=== PATIENT | female | born 1945 | race Caucasian/White ===

== ENCOUNTER 2020-01-19 06:48 | Day surgery (SDC) | payer MEDICARE ==
[2020-01-19] MEDS ORDERED: fentaNYL 100 MCG/2 ML SDV ONE (07:14)
[2020-01-19] MEDS ORDERED: Propofol 200 MG/20 ML SDV ONE (07:14)
[2020-01-19] MEDS ORDERED: Cyanocobalamin (Vitamin B12) 1,000 MCG/ML SDV IM ONE (07:45)
[2020-01-19] MEDS ORDERED: Glycopyrrolate 0.2 MG/ML 2 ML SDV IVPUSH ONE (07:45)
[2020-01-19] MEDS ORDERED: Lactated Ringers 1,000 ML IV ONE (07:45)
[2020-01-19] MEDS ORDERED: MVI, Adult with Vitamin K 10 ML, Thiamine 200 MG, Chromium/Copper/Mang/Selen/Zn 1 ML in... IV ONE ×4 (08:45)
--- NOTE | 2020-01-30 14:51 | OR ---
DATE OF PROCEDURE: 01/19/2020 SURGEON: Terrance Ng MD PREOPERATIVE DIAGNOSIS: Non dilatable strictured gastrojejunostomy, status post silastic band into gastric bypass. POSTOPERATIVE DIAGNOSES: 1. Non dilatable strictured gastrojejunostomy, status post silastic band into gastric bypass. 2. Distal esophageal ulcer. OPERATIVE PROCEDURE: Upper GI endoscopy with biopsies of distal esophageal ulcer. ANESTHESIA: IV sedation. INDICATIONS FOR PROCEDURE: A 74-year-old, status post a Rich-en-Y gastric bypass done in [place] in the . This was done with a silastic band across the gastrojejunostomy. She has had persistent problems with abdominal pain and heartburn and has undergone multiple upper endoscopies and attempted dilations of the stricture of the gastrojejunostomy. To confirm the diagnosis, the patient to undergo an upper GI endoscopy with biopsies as indicated. Potential risks including bleeding and perforation were discussed, and the patient wishes to proceed. DETAILS OF PROCEDURE: The patient was taken to the operating room and placed in a left lateral decubitus position. IV sedation was administered, after which the upper GI endoscope was passed orally through the length of the esophagus and into the gastric pouch. The scope could be passed through the gastrojejunostomy but this was fairly narrowed, and given the presence of the silastic band, this appeared to be probably not in a situation that it could be dilated as the silastic band would recoil to its same diameter after the dilation process, which is obviously what had been happening with the prior upper endoscopies done in [place]. The visualized portion of the Rich limb was otherwise unremarkable. Pouch itself was quite large and would require significant reduction in size at the time of re-operation. Biopsies were obtained from the distal esophageal ulcer which was likely related to reflux of acid and retained contents within the gastric pouch. Minimal bleeding from the biopsy sites was seen and the procedure was then concluded. The patient was taken to the recovery room in satisfactory condition. Situation was discussed with the patient and her daughter and plan will be to proceed with revision of the gastric bypass late next week. We will want to wait enough time to get the biopsy report from the esophageal ulcer to be sure that there are not any malignant changes in that set of biopsies. Terrance Ng MD /[id number]
== END 2020-01-19 11:00 | disposition home or self-care (01) ==
LOC: JP.SDS 06:48
PROVIDERS: ATTEND Surgery
DX: K91.89 Other postprocedural complications and disorders of digestive system (principal); K22.10 Ulcer of esophagus without bleeding; E11.9 Type 2 diabetes mellitus without complications; E03.9 Hypothyroidism, unspecified; I10 Essential (primary) hypertension; Y83.2 Surgical operation with anastomosis, bypass or graft as the cause of abnormal reaction of the patient, or of later complication, without mention of misadventure at the time of the procedure; Y73.8 Miscellaneous gastroenterology and urology devices associated with adverse incidents, not elsewhere classified; Z98.0 Intestinal bypass and anastomosis status; Z98.84 Bariatric surgery status
CPT/HCPCS: 43239; 88305; 88312; 88342; J2704; J3010; J3411; J3420; J3490; J7120

== ENCOUNTER 2020-01-27 08:18 | Inpatient (IN) | payer MEDICARE ==
[2020-01-27] MEDS ORDERED: Acetaminophen 500 MG Tab PO ONE (08:45)
[2020-01-27] MEDS: Meropenem 500 MG SDV ONE ×2 (09:04→12:29)
[2020-01-27] MEDS ORDERED: Dextrose 5%-Lactated Ringers 1,000 ML IV SCH ×2 (09:15→17:00)
[2020-01-27] MEDS ORDERED: fentaNYL 250 MCG/5 ML SDV ONE (10:10)
[2020-01-27] MEDS ORDERED: Dexamethasone 4 MG/ML SDV ONE (10:11)
[2020-01-27] MEDS ORDERED: Propofol 200 MG/20 ML SDV ONE (10:11)
[2020-01-27] MEDS ORDERED: Lidocaine 2% 5 ML SDV ONE (10:11)
[2020-01-27] MEDS ORDERED: Ondansetron 4 MG/2 ML SDV ONE (10:11)
[2020-01-27] MEDS ORDERED: Neostigmine Methylsulfate 1 MG/ML 5 ML Syringe ONE (10:11)
[2020-01-27] MEDS ORDERED: Glycopyrrolate 0.2 MG/ML 5 ML MDV ONE (10:11)
[2020-01-27] MEDS ORDERED: Rocuronium 50 MG/5 ML Vial ONE ×2 (10:11→12:44)
[2020-01-27] MEDS ORDERED: Magnesium Sulfate 4.9 GM in Sodium Chloride 0.9% 250 ML IV ONE (10:30)
[2020-01-27] MEDS ORDERED: Ropivacaine 50 ML, dexAMETHasone 8 MG, EPINEPHrine 0.4 MG, Sodium Chloride 0.9% 27.6 ML NERVRT SCH ×4 (10:30)
[2020-01-27] MEDS ORDERED: Ketamine 500 MG/5 ML MDV IV SCH (10:30)
[2020-01-27] MEDS ORDERED: Ketamine 50 MG in Sodium Chloride 0.9% 49.5 ML IV SCH (10:30)
[2020-01-27] MEDS ORDERED: Magnesium Sulfate 3 GM in Sodium Chloride 0.9% 100 ML IV SCH (10:30)
[2020-01-27] MEDS ORDERED: cefOXitin 2 GM in Sodium Chloride 0.9% 50 ML IV ONE (10:30)
[2020-01-27] MEDS ORDERED: ePHEDrine 50 MG/ML SDV ONE (11:53)
[2020-01-27] MEDS ORDERED: Sodium Chloride 0.9% 10 ML ONE (11:54)
[2020-01-27] MEDS ORDERED: fentaNYL 100 MCG/2 ML SDV ONE ×2 (12:55→14:02)
[2020-01-27] MEDS ORDERED: Tranexamic Acid 1,000 MG in Sodium Chloride 0.9% 50 ML IV ONE ×2 (15:45→19:45)
[2020-01-27] MEDS: Tranexamic Acid 1,000 MG in Sodium Chloride 0.9% 100 ML IV ONE ×2 (15:50→18:24)
--- NOTE | 2020-01-27 16:20 | CRLCR ---
Indication: Looking for retained instrument. Technique: A KUB of the abdomen was performed. This includes much of the abdomen above the iliac crest though the left most aspect of the abdomen is not on the image. Comparison: No Findings: The image shows multiple skin adal in the midline and a drain in the left upper quadrant. There are no other man made items visible on this study Impression: The only visible man made a objects on this image are skin adal and a drain in the left upper quadrant. Dictated by Terrance Mcneill MD @ Jan 27 2020 4:16PM Signed by Dr. Terrance Mcneill @ Jan 27 2020 4:19PM
[2020-01-27] MEDS ORDERED: Insulin Lispro 100 Unit/ML 3 ML KwikPen SUBCUT ONE (16:45)
[2020-01-27] MEDS ORDERED: Ondansetron 4 MG/2 ML SDV IVPUSH PRN (16:53)
[2020-01-27] MEDS ORDERED: Cyclobenzaprine 10 MG Tab PO PRN (16:53)
[2020-01-27] MEDS ORDERED: diphenhydrAMINE 50 MG/ML SDV IVPUSH PRN (16:53)
[2020-01-27] MEDS ORDERED: oxyCODONE 5 MG Tab PO PRN (16:53)
[2020-01-27] MEDS ORDERED: Calcium Gluconate 10% 1 GM/10 ML SDV IVPUSH PRN (16:53)
[2020-01-27] MEDS ORDERED: Metoclopramide 10 MG/2 ML SDV IVPUSH PRN (16:53)
[2020-01-27] MEDS ORDERED: Labetalol 20 MG/4 ML Syringe IVPUSH PRN (16:53)
[2020-01-27] MEDS ORDERED: HYDROmorphone 1 MG/ML Syringe IV PRN (16:53)
[2020-01-27] MEDS ORDERED: hydrOXYzine HCL 100 MG/2 ML SDV IM PRN (16:53)
[2020-01-27] MEDS ORDERED: HYDROmorphone 0.5 MG/0.5 ML Syringe IVPUSH PRN (16:53)
[2020-01-27] MEDS ORDERED: Acetaminophen 500 MG Tab PO PRN (16:53)
[2020-01-27] MEDS ORDERED: Lactated Ringers 1,000 ML IV SCH (17:00)
[2020-01-27] MEDS: cefOXitin 2 GM in Sodium Chloride 0.9% 50 ML IV SCH ×2 (18:03→22:49)
[2020-01-27] MEDS: Pantoprazole 40 MG Vial IVPUSH SCH (18:04)
[2020-01-27] MEDS ORDERED: MVI, Adult with Vitamin K 10 ML, Thiamine 200 MG, Chromium/Copper/Mang/Selen/Zn 1 ML in... IV SCH ×4 (18:30)
[2020-01-27] MEDS ORDERED: TRANEXAMIC ACID IV ONE (20:25)
[2020-01-27] MEDS ORDERED: SODIUM CHLORIDE 0.9% IV ONE (20:25)
[2020-01-27] MEDS: Insulin Lispro 100 Unit/ML 3 ML KwikPen SUBCUT PRN (21:24)
[2020-01-27] MEDS ORDERED: Acetaminophen 500 MG Tab PO SCH (22:00)
[2020-01-27] MEDS: Acetaminophen Soln 650 MG/20.3 ML UD Cup PO SCH (22:49)
[2020-01-28] MEDS ORDERED: Lactated Ringers 500 ML IV ONE ×2 (02:30→15:30)
[2020-01-28] MEDS: cefOXitin 2 GM in Sodium Chloride 0.9% 50 ML IV SCH ×4 (04:43→23:41)
[2020-01-28] MEDS: Insulin Lispro 100 Unit/ML 3 ML KwikPen SUBCUT PRN ×2 (04:47→09:15)
[2020-01-28] MEDS ORDERED: Iopamidol 510 MG/ML 50 ML SDV PO ONE (05:02)
[2020-01-28] MEDS: Acetaminophen Soln 650 MG/20.3 ML UD Cup PO SCH ×3 (06:27→21:47)
[2020-01-28] MEDS ORDERED: Heparin Sodium 5,000 Units/ML Vial SUBCUT SCH (08:00)
[2020-01-28] MEDS: Celecoxib 200 MG Cap PO SCH ×2 (08:01→20:37)
[2020-01-28] MEDS: Lisinopril 10 MG Tab PO SCH (09:24)
[2020-01-28] MEDS: Propranolol 80 MG Cap.ER PO SCH (09:25)
[2020-01-28] MEDS: Aspirin 81 MG Tab.Chew PO SCH (09:25)
[2020-01-28] MEDS: Lactated Ringers 1,000 ML IV SCH (09:34)
[2020-01-28] MEDS: Levothyroxine 100 MCG Tab PO SCH (11:21)
[2020-01-28] MEDS: Insulin Lispro 100 Unit/ML 3 ML KwikPen SUBCUT SCH ×3 (11:29→21:24)
[2020-01-28] MEDS: MVI, Adult with Vitamin K 10 ML, Thiamine 200 MG, Chromium/Copper/Mang/Selen/Zn 1 ML in... IV SCH ×4 (15:53)
[2020-01-28] MEDS: Pantoprazole 40 MG Vial IVPUSH SCH (18:28)
[2020-01-28] MEDS: Sertraline 50 MG Tab PO SCH (20:37)
[2020-01-29] MEDS: Lactated Ringers 1,000 ML IV SCH (01:27)
[2020-01-29] MEDS: Acetaminophen Soln 650 MG/20.3 ML UD Cup PO SCH ×3 (06:28→21:55)
[2020-01-29] MEDS: Levothyroxine 100 MCG Tab PO SCH (07:37)
[2020-01-29] MEDS: Insulin Lispro 100 Unit/ML 3 ML KwikPen SUBCUT SCH ×4 (07:37→21:29)
[2020-01-29] MEDS: Aspirin 81 MG Tab.Chew PO SCH (08:54)
[2020-01-29] MEDS: Celecoxib 200 MG Cap PO SCH ×2 (08:54→21:55)
[2020-01-29] MEDS: Lisinopril 10 MG Tab PO SCH (08:54)
[2020-01-29] MEDS: Propranolol 80 MG Cap.ER PO SCH (08:54)
[2020-01-29] MEDS: Heparin Sodium 5,000 Units/ML Vial SUBCUT SCH ×2 (08:55→21:55)
[2020-01-29] MEDS ORDERED: Cyanocobalamin (Vitamin B12) 1,000 MCG/ML SDV IM ONE (09:00)
[2020-01-29] MEDS ORDERED: Furosemide 20 MG/2 ML VIAL IV ONE ×2 (12:00→13:30)
[2020-01-29] MEDS: MVI, Adult with Vitamin K 10 ML, Thiamine 200 MG, Chromium/Copper/Mang/Selen/Zn 1 ML in... IV SCH ×4 (15:49)
[2020-01-29] MEDS: Pantoprazole 40 MG Vial IVPUSH SCH (18:21)
[2020-01-29] MEDS: Sertraline 50 MG Tab PO SCH (21:56)
[2020-01-30] MEDS: Lactated Ringers 1,000 ML IV SCH (00:01)
[2020-01-30] MEDS: Acetaminophen Soln 650 MG/20.3 ML UD Cup PO SCH ×3 (05:36→22:19)
[2020-01-30] MEDS: Insulin Lispro 100 Unit/ML 3 ML KwikPen SUBCUT SCH ×4 (07:33→22:15)
[2020-01-30] MEDS: Levothyroxine 100 MCG Tab PO SCH (07:34)
[2020-01-30] MEDS: Docusate Sodium 100 MG Cap PO SCH ×2 (08:05→20:13)
[2020-01-30] MEDS: Bisacodyl 5 MG Tab PO SCH ×2 (08:05→20:14)
[2020-01-30] MEDS: Celecoxib 200 MG Cap PO SCH ×2 (08:06→20:16)
[2020-01-30] MEDS: Aspirin 81 MG Tab.Chew PO SCH (08:06)
[2020-01-30] MEDS: Heparin Sodium 5,000 Units/ML Vial SUBCUT SCH ×2 (08:06→22:18)
--- NOTE | 2020-01-30 08:57 | PN ---
DATE OF SERVICE: 01/30/2020 SUBJECTIVE: Chloe states her pain is controlled. She is feeling better today. Hemoglobin was 7.9. On 01/29/2020, she received 1 unit of packed red blood cells yesterday and her hemoglobin this morning is 9. She is sitting up in the chair. Has no questions or concerns. OBJECTIVE: GENERAL: Chloe Marie is a pleasant 74-year-old female, alert and orientated. VITAL SIGNS: TPR at 07:22, 97.5, 60, 16, blood pressure 95/41. HEENT: Negative. NECK: Supple. HEART: Regular rate and rhythm. LUNGS: Clear. ABDOMEN: Dressings dry and intact. Abdominal binder is on. EXTREMITIES: Without peripheral edema. ASSESSMENT: 1. Exploratory laparotomy with lysis of extensive adhesions. a. Esophagogastrectomy with Rich-en-Y. b. Separate small bowel resection. c. Revision of previous jejunojejunostomy. d. Takedown of previous gastrostomy. e. Splenography. f. Drainage of intraabdominal abscess extending into abdominal wall. g. Repair of paraesophageal diaphragmatic hernia for non dilatable stricture at the gastrojejunostomy, status post silastic banded Rich-en-Y gastric bypass, extensive inflammation at the gastric pouch, pre-existing gastrostomy, segment of the small bowel adherent to splenic capsule resulting in splenic capsule tear with paraesophageal diaphragmatic hernia abdominal wall abscess. 2. Date of surgery: 01/27/2020. Surgeon: Terrance Ng MD. PLAN: 1. Check CBC now. 2. CBC, CMP, mag, phos, BNP in a.m. 3. Dulcolax 10 mg p.o. b.i.d. scheduled, to discontinue when the patient has a bowel movement. 4. Colace 100 mg p.o. b.i.d. 5. Convert IV to saline lock. 6. We will evaluate p.r.n. or in a.m. Sridevi Alvarenga PA-C /[id number]
--- NOTE | 2020-01-30 08:59 | CR ---
UGI [facility] HISTORY: Postbariatric surgery FINDINGS: Patient swallowed water-soluble contrast. Upright views of the abdomen show no evidence of extravasation or obstruction. IMPRESSION: Status post bariatric surgery No extravasation or obstruction seen
--- NOTE | 2020-01-30 13:39 | PN ---
DATE OF SERVICE: 01/28/2020 The patient has been afebrile with stable vital signs overnight. Did have some oozing early postoperatively and received 1 additional dose of tranexamic acid. The hemoglobin is fairly stable this morning at 11.1 and the drains have slowed down quite a bit. She was a little bit lightheaded at the time of upper GI, but otherwise hemodynamically has been stable. Her upper GI x-ray looked good. We will go over to a step 2 diet without solids today and restart her pertinent oral medications. Recheck some labs tomorrow. Otherwise, maximize activity and work with pulmonary toilet. Terrance Ng MD /[id number]
--- NOTE | 2020-01-30 14:15 | PN ---
DATE OF SERVICE: 01/29/2020 The patient has been afebrile with stable vital signs her hemoglobin is down into the 8s today and we will give her 1 unit of packed RBCs followed by some Lasix. I think any postoperative bleeding has stopped. At this point, we will restart some heparin and otherwise discontinue the Ontiveros catheter, continue on the step-2 diet, work with pulmonary toilet. Terrance Ng MD /[id number]
[2020-01-30] MEDS ORDERED: Pantoprazole 40 MG Delayed-Release Granules 1 Packet PO SCH (16:30)
[2020-01-30] MEDS: Sertraline 50 MG Tab PO SCH (22:19)
[2020-01-31] MEDS: Acetaminophen Soln 650 MG/20.3 ML UD Cup PO SCH (06:36)
--- NOTE | 2020-01-31 08:39 | DISCH ---
ADMISSION DIAGNOSES: Chronic dysphagia, diabetes type 2, hypertension, hypothyroidism, hypercholesterolemia, osteoarthritis, status post Rich-en-Y gastric bypass surgery with silastic ring, unspecified surgical malabsorption, B12 deficiency, vitamin D deficiency. DISCHARGE DIAGNOSES: 1. Exploratory laparotomy with lysis of extensive adhesions. a. Esophagogastrectomy with Rich-en-Y. b. Separate small-bowel resection. c. Revision of previous jejunojejunostomy. d. Takedown of previous gastrostomy. e. Splenography. f. Drainage of intraabdominal abscess extending into abdominal wall. g. Repair of paraesophageal diaphragmatic hernia. POSTOPERATIVE DIAGNOSIS: Non dilatable stricture at the gastrojejunostomy, status post silastic banded Rich-en-Y gastric bypass, extensive inflammation of the gastric pouch, pre- existing gastrostomy, segment of the small bowel adherent to splenic capsule resulting in splenic capsule tear, repair of paraesophageal diaphragmatic hernia, intra abdominal hernia extending into the abdominal wall. Date of surgery: 01/27/2020. Surgeon: Terrance Ng MD. HISTORY: Chloe is a 74-year-old female who has had a Rich-en-Y gastric bypass surgery with a silastic band. She has had chronic dysphagia and has had to have several EGDs with dilatations. She presented to [facility], attended consult classes, and after preoperative evaluation, discussion of possible risks and possible complications, she wished to proceed with surgical procedure. HOSPITAL COURSE: Chloe had her surgery on 01/27/2020. She had some bleeding from the staple line. Received 1 dose of tranexamic acid overnight and the hemoglobin was 11.11. Upper GI was good. She was advanced to step 2 diet with no cereal. On 01/29/2020, vital signs were stable. Hemoglobin was 8 and she was given 1 unit of packed red blood cells followed by Lasix. Ontiveros catheter was discontinued on 01/30/2020. CBC was checked. She was started on bowel stimulation. She started having bowel movements and activity was good, independent. Vital signs were stable with exception of her blood pressure was low. Oral intake adequate at 1020 and urine output 950. MICHAEL drains put out 15 and 25 of a light serosanguineous drainage over the past 24 hours. She was able to be discharged to home without any complications on 01/31/2020. PHYSICAL EXAMINATION: GENERAL: Chloe Marie is a pleasant 74-year-old female. VITAL SIGNS: Height is 5 feet 7 inches, weight is 235 pounds, BMI is 36.8. TPR at 0700, 98.1, 64, 18, blood pressure 124/44. HEENT: Negative. NECK: Supple. HEART: Regular rate and rhythm. LUNGS: Clear. ABDOMEN: Aquacel dressing is on. Abdominal binder is on. EXTREMITIES: Without peripheral edema. DISPOSITION: Discharged to home. CONDITION: Stable and improving. FOLLOWUP: Appointment with Sridevi Alvarenga PA-C, on 02/07/2020 at 10 a.m. Appointment at [facility]. She will have a CBC checked prior to that appointment. HOME MEDICATIONS: 1. Tylenol 1000 mg every 8 hours p.r.n. pain. 2. Celebrex 200 mg oral b.i.d. 3. She is to resume taking the following home medications;. a. Aspirin 81 mg daily. b. Levothyroxine 100 mcg oral daily. c. Omeprazole 20 mg oral daily. d. Inderal/propranolol 80 mg oral daily. e. Sertraline/Zoloft 50 mg oral at bedtime. f. Atorvastatin/Lipitor 20 mg oral at bedtime. 4. Discontinue taking vitamin C, calcium carbonate, vitamin D3, vitamin B12, multivitamin, lisinopril, and glipizide. DIET: Step 1 gastric bypass diet with nothing thicker than milk or protein drink. Drink 8 to 10 glasses of water a day. ACTIVITY: No lifting greater than 10 pounds for 6 weeks. OTHER ACTIVITY AFTER DISCHARGE: Walk 6 times daily inside your home. Driving: Do not drive for 1 week and while on pain medication. Shower/bathing: May shower. DISCHARGE INSTRUCTIONS: Notify provider if any fever, increased pain, nausea, vomiting. Keep site clean and dry. Wear abdominal binder for 6 weeks and then as tolerated. SPECIAL INSTRUCTIONS: Use incentive spirometer 10 times every hour while awake. Stay on step 1 gastric bypass diet with milk and protein drinks until 02/10/2020.
[2020-01-31] MEDS: Insulin Lispro 100 Unit/ML 3 ML KwikPen SUBCUT SCH (08:41)
[2020-01-31] MEDS: Celecoxib 200 MG Cap PO SCH (08:42)
[2020-01-31] MEDS: Heparin Sodium 5,000 Units/ML Vial SUBCUT SCH (08:42)
[2020-01-31] MEDS: Levothyroxine 100 MCG Tab PO SCH (08:42)
[2020-01-31] MEDS: Aspirin 81 MG Tab.Chew PO SCH (08:42)
[2020-01-31] MEDS: Bisacodyl 5 MG Tab PO SCH (08:46)
[2020-01-31] MEDS: Docusate Sodium 100 MG Cap PO SCH (08:46)
--- NOTE | 2020-02-06 11:59 | OR ---
DATE OF PROCEDURE: 01/27/2020 SURGEON: Terrance Ng MD PREOPERATIVE DIAGNOSIS: Nondilatable stricture at the gastrojejunostomy, status post silastic band at Rich-en-Y gastric bypass. POSTOPERATIVE DIAGNOSES: 1. Nondilatable stricture at the gastrojejunostomy, status post silastic band at Rich-en-Y gastric bypass. 2. Extensive inflammation in and around the gastric pouch. 3. Preexisting gastrostomy. 4. Segment of small bowel adherent to the splenic capsule, resulting in focal avulsion of splenic capsule requiring resection. 5. Paraesophageal diaphragmatic hernia. 6. Intraabdominal extending into abdominal wall abscess. OPERATIVE PROCEDURES: Exploratory laparotomy with lysis of extensive adhesions and: 1. Esophagogastrectomy with Rich-en-Y esophagojejunostomy (78345). 2. Separate small bowel resection (31713). 3. Revision of previous jejunojejunostomy (39258). 4. Takedown of previous gastrostomy (44466). 5. Splenorrhaphy (34952). 6. Drainage of intraabdominal abscess extending into abdominal wall (22278). 7. Repair of paraesophageal diaphragmatic hernia (17595). ANESTHESIA: General. ESTIMATOR: Sridevi Alvarenga PA-C . INDICATIONS FOR PROCEDURE: This is a 74-year-old status post previous open Rich-en-Y gastric bypass at [facility]. This was done with a silastic band placed around the gastrojejunostomy. The patient has had severe problems with dysphagia and has undergone multiple endoscopies with dilation, none of which have been successful. This is obviously related to the presence of silastic band as this, while stretching, would be dilated but would recoil back into the same position following removal of the dilator. Given this, plan is to proceed with resection of the area of gastrojejunostomy. Potential risks of the procedure including bleeding, infection, leaks from any GI tract closures, as well as possible cardiopulmonary or hemorrhagic complications leading to were all discussed, and the patient wishes to proceed DETAILS OF PROCEDURE: The patient was taken to the operating room. After general endotracheal anesthesia was induced, a Ontiveros catheter was inserted and the abdomen prepped and draped. An upper midline incision was made and carried down through the skin and subcutaneous tissue and through the full-thickness abdominal wall. Upon entering the abdomen, extensive adhesions were present, these were taken down with a combination of electrocautery and blunt dissection. As one dissected up into the area of the gastrojejunostomy, there was extensive local inflammation. A loop of the small bowel was adherent to the superior aspect of splenic capsule. As this was dissected, there was quite a bit of oozing from the splenic surface. This was controlled with 3 stitches of 3-0 Vicryl stitch, and at end of the procedure, the area was closed with fibrin sealant and an omental patch placed over the area of the splenic capsule deserosalization, which successfully controlled the bleeding and completed the splenorrhaphy. Eventually, the area around the gastrojejunostomy was dissected free. There was extensive inflammation throughout the pouch, and the first level where there was satisfactory tissue for subsequent anastomosis was the distal esophagus. Given this, the distal esophagus was divided with a ALL black load, and the small bowel as it entered the gastrojejunostomy was divided with ALL stapler as well. The remaining attachments to the distal esophagus, gastric pouch, and gastrojejunostomy, and some of the adjacent stomach were then taken down, and some of the adjacent stomach was then resected as well so as to provide a clean plane for resection and the esophagogastrectomy specimen was then delivered from the field. During the course of the initial dissection, the patient had a previous gastrostomy placed and this was resected as well, after it was dissected away from the abdominal wall. At this point, the patient was noted to have had a paraesophageal diaphragmatic hernia, which was noted preoperatively. This was repaired with a posterior crural repair using 0 Ethibond sutures reinforced with PTFE pledgets. The area of deserosalization of small bowel involved a loop of bowel which was part of the common limb, which had prolapsed up around the area of the splenic flexure and which had been adherent to the spleen. This area was then resected and GI tract continuity accomplished with [id number] stapled anastomosis using standard technique. At this point, the Rich limb was noted to be somewhat inadequate in terms of its length. Given this, the biliopancreatic limb was then divided away from the initial jejunojejunostomy and using standard [id number] staple technique was reanastomosed roughly 60 cm further distal along what had been, at that point, the common limb. The angles of anastomosis and mesenteric defect were approximated with some 3-0 Vicryl stitch. The anvil of a 25 mm EEA stapler was attached to Bleckley sump tube and brought down through the mouth, taken out through the end of the divided esophagus, allowing the anvil to be pulled down to that level. The Rich limb was once again through a retrocolic approach and main body of EEA stapler was passed into the lumen of the now opened Rich limb and brought up to the anvil and united with it, thus creating the esophagojejunostomy. Upon removal of the stapler, double donuts of mucosa were noted within it, and the small bowel was closed off with a vascular staple line. The esophagojejunostomy was then reinforced with some 3-0 Vicryl seromuscular stitch, along with fibrin sealant. At that point, no further problems were noted. The patient throughout the procedure had fair bit of oozing and was given tranexamic acid 1 g near the end of the procedure, and this seemed to bring the problem of oozing under satisfactory control. Of note, upon entering the abdomen, the patient was noted to have an abscess which may or may not be sterile versus infected in the abdominal wall. This contained some creamy purulent material. As one dissected down further, this extended into the intraabdominal location, where it had been walled off with some omentum. Cultures of this were obtained, and it was felt the area could be closed satisfactory, given the lack of obvious infectious component to the probably sterile abscess. At this point, with the abdomen having been irrigated with antibiotic-containing saline solution, 2 Mark- Tuckre drains were placed in the left subcostal area and placed up against the esophagojejunostomy. The midline fascia was then approximated with #2 Vicryl stitch, subcutaneous tissue with 2 layers of 3-0 and 4-0 Vicryl stitch deep, and adal for the skin. Drains were fixed with some 4-0 Vicryl stitch as well. The patient was taken to the recovery room in satisfactory condition. There were no evident complications. Physician timber management assistant, Sridevi Alvarenga, played an essential role in assisting in this case, helping to position the patient, retract structures as needed, as well as suturing and cutting sutures when indicated. Her presence improved patient's safety and decreased operative time. Terrance Ng MD /[id number]
== END 2020-01-31 09:50 | disposition home or self-care (01) | DRG 326 ==
LOC: JP.MS 08:18 → JP.SDS 08:18 → EDSTATUS 12:15 → UNDOADMIN 16:00 → JP.MS 16:00
PROVIDERS: ADMIT Surgery; ATTEND Surgery
PROC: 0DB60ZZ Excision of Stomach, Open Approach (ICD-10-PCS; principal; 2020-01-27)
PROC: 0DB80ZZ Excision of Small Intestine, Open Approach (ICD-10-PCS; 2020-01-27)
PROC: 0D160ZA Bypass Stomach to Jejunum, Open Approach (ICD-10-PCS; 2020-01-27)
PROC: 07QP0ZZ Repair Spleen, Open Approach (ICD-10-PCS; 2020-01-27)
PROC: 0W9G0ZZ Drainage of Peritoneal Cavity, Open Approach (ICD-10-PCS; 2020-01-27)
PROC: 0BQT0ZZ Repair Diaphragm, Open Approach (ICD-10-PCS; 2020-01-27)
PROC: 0DB50ZZ Excision of Esophagus, Open Approach (ICD-10-PCS; 2020-01-27)
PROC: 0DB60ZZ Excision of Stomach, Open Approach (ICD-10-PCS; 2020-01-27)
DX: K95.89 Other complications of other bariatric procedure (principal); K65.1 Peritoneal abscess; K91.2 Postsurgical malabsorption, not elsewhere classified; K44.9 Diaphragmatic hernia without obstruction or gangrene; E78.00 Pure hypercholesterolemia, unspecified; M19.90 Unspecified osteoarthritis, unspecified site; I10 Essential (primary) hypertension; E66.01 Morbid (severe) obesity due to excess calories; E60 Dietary zinc deficiency; E50.9 Vitamin A deficiency, unspecified; Z68.36 Body mass index [BMI] 36.0-36.9, adult
CPT/HCPCS: 36415; 36430; 74018; 74240; 80053; 82962; 83735; 83880; 84100; 85025; 85027; 86850; 86900; 86901; 86920; 86922; 87070; 87075; 87205; 93005; 94762; A9270-GY; C9113; J0171; J0694; J1100; J1170; J1644; J1815; J2001; J2185; J2405; J2704; J2710; J2765; J2795; J3010; J3411; J3420; J3475; J3490; J7050; J7120; J7121; P9016; Q9966

== ENCOUNTER 2020-02-17 05:41 | Day surgery (SDC) | payer MEDICARE ==
[2020-02-17] MEDS ORDERED: Cyanocobalamin (Vitamin B12) 1,000 MCG/ML SDV IM ONE (06:30)
[2020-02-17] MEDS ORDERED: Glycopyrrolate 0.2 MG/ML 2 ML SDV IVPUSH ONE (06:30)
[2020-02-17] MEDS ORDERED: Lactated Ringers 1,000 ML IV ONE (06:30)
[2020-02-17] MEDS ORDERED: Propofol 200 MG/20 ML SDV ONE (07:05)
[2020-02-17] MEDS ORDERED: fentaNYL 100 MCG/2 ML SDV ONE (07:05)
[2020-02-17] MEDS ORDERED: Midazolam 1 MG/ML 2 ML SDV ONE (07:21)
[2020-02-17] MEDS ORDERED: MVI, Adult with Vitamin K 10 ML, Thiamine 200 MG, Chromium/Copper/Mang/Selen/Zn 1 ML in... IV ONE ×4 (07:30)
--- NOTE | 2020-02-20 13:03 | OR ---
DATE OF PROCEDURE: 02/17/2020 SURGEON: Terrance Ng MD PREOPERATIVE DIAGNOSIS: Probable stricture at esophagojejunostomy. POSTOPERATIVE DIAGNOSIS: Mild stricture at esophagojejunostomy. OPERATIVE PROCEDURE: Upper GI endoscopy with dilation of esophagojejunostomy (03049). ANESTHESIA: IV sedation. INDICATIONS FOR PROCEDURE: The patient is recently status post an esophagogastrectomy as a revisional procedure following previous Rich-en-Y gastric bypass. She presents now with some dysphagia suggestive of stricturing at the esophagojejunostomy. Plan is to proceed with upper GI endoscopy with dilation as indicated. Potential risks including bleeding and perforation were discussed, and the patient wishes to proceed. DETAILS OF PROCEDURE: The patient was taken to the operating room, placed in left lateral decubitus position. IV sedation was administered, after which the upper GI endoscope was passed orally through the length of the esophagus and into the area of the esophagojejunostomy and through that anastomosis roughly 20 cm into the Rich limb. The patient was noted to have only mild stricturing at esophagojejunostomy. A 1 cm scope was able to be passed through that area without difficulty. There was some friability of the mucosa at that level with a little bit of blood present on passage of the scope. Otherwise, Bard gastrointestinal balloon catheter was then centered across the anastomosis and inflated to 36-Welsh size. This resulted in slight increase in diameter. Scope and the dilator were then removed and this area examined. No complications were noted, and the procedure was concluded. The patient was taken to the recovery room in satisfactory condition. Terrance Ng MD /[id number]
== END 2020-02-17 11:40 | disposition home or self-care (01) ==
LOC: JP.SDS 05:41
PROVIDERS: ATTEND Surgery
DX: K94.33 Esophagostomy malfunction (principal); Z98.84 Bariatric surgery status; Y73.2 Prosthetic and other implants, materials and accessory gastroenterology and urology devices associated with adverse incidents
CPT/HCPCS: 43249; J2250; J2704; J3010; J3411; J3420; J3490; J7120

== ENCOUNTER 2021-12-19 07:15 | Inpatient (IN) | payer MEDICARE ==
[2021-12-19] MEDS ORDERED: Propranolol 80 MG Cap.ER PO ONE (09:59)
[2021-12-19] MEDS ORDERED: Celecoxib 200 MG Cap PO ONE (10:00)
[2021-12-19] MEDS ORDERED: Acetaminophen 500 MG Tab PO ONE (10:00)
[2021-12-19] MEDS ORDERED: fentaNYL 250 MCG/5 ML SDV ONE ×2 (10:31→13:30)
[2021-12-19] MEDS ORDERED: Neostigmine Methylsulfate 1 MG/ML 5 ML Syringe ONE (10:32)
[2021-12-19] MEDS ORDERED: Ondansetron 4 MG/2 ML SDV ONE (10:32)
[2021-12-19] MEDS ORDERED: Succinylcholine 200 MG/10 ML MDV ONE (10:32)
[2021-12-19] MEDS ORDERED: Propofol 200 MG/20 ML SDV ONE (10:32)
[2021-12-19] MEDS ORDERED: Glycopyrrolate 0.2 MG/ML 5 ML MDV ONE (10:32)
[2021-12-19] MEDS ORDERED: Dexamethasone 4 MG/ML SDV ONE (10:32)
[2021-12-19] MEDS ORDERED: Rocuronium 50 MG/5 ML Vial ONE ×2 (10:32→13:29)
[2021-12-19] MEDS ORDERED: Dextrose 5%-Lactated Ringers 1,000 ML IV SCH (10:45)
[2021-12-19] MEDS ORDERED: ceFAZolin 2 GM in Premix Bag 1 BAG IV ONE (11:15)
[2021-12-19] MEDS ORDERED: Bupivacaine 0.5% 50 ML MDV ONE (11:34)
[2021-12-19] MEDS ORDERED: Lidocaine 1% with EPINEPHrine 1:100,000 50 ML MDV ONE (11:34)
[2021-12-19] MEDS ORDERED: Meropenem 500 MG SDV ONE (11:34)
[2021-12-19] MEDS ORDERED: Ketamine 17 MG in Sodium Chloride 0.9% 19.83 ML IV SCH (11:45)
[2021-12-19] MEDS ORDERED: Ketamine 500 MG/5 ML MDV IV SCH (11:45)
[2021-12-19] MEDS ORDERED: ePHEDrine 50 MG/ML SDV ONE (11:55)
[2021-12-19] MEDS ORDERED: Sodium Chloride 0.9% 10 ML ONE (11:55)
[2021-12-19] MEDS ORDERED: Lactated Ringers 1,000 ML ONE (12:46)
[2021-12-19] MEDS ORDERED: Ondansetron 4 MG/2 ML SDV IVPUSH PRN ×2 (13:47→15:00)
[2021-12-19] MEDS ORDERED: diphenhydrAMINE 25 MG Cap PO PRN (13:47)
[2021-12-19] MEDS ORDERED: diphenhydrAMINE 50 MG/ML SDV IVPUSH PRN ×2 (13:47→15:00)
[2021-12-19] MEDS ORDERED: HYDROmorphone/Normal Saline 6 MG/30 ML PCA Vial IV PRN (13:47)
[2021-12-19] MEDS ORDERED: Naloxone 0.4 MG/ML SDV IVPUSH PRN (13:47)
[2021-12-19] MEDS ORDERED: Naloxone 0.4 MG/ML SDV IV PRN (14:00)
[2021-12-19] MEDS ORDERED: Mupirocin Oint 22 GM Tube ONE (14:38)
[2021-12-19] MEDS ORDERED: Cyclobenzaprine 10 MG Tab PO PRN (14:59)
[2021-12-19] MEDS ORDERED: Labetalol 20 MG/4 ML Syringe IVPUSH PRN (15:00)
[2021-12-19] MEDS ORDERED: hydrOXYzine HCL 100 MG/2 ML SDV IM PRN (15:00)
[2021-12-19] MEDS ORDERED: Metoclopramide 10 MG/2 ML SDV IVPUSH PRN (15:00)
[2021-12-19] MEDS ORDERED: Acetaminophen 500 MG Tab PO PRN (15:00)
[2021-12-19] MEDS ORDERED: Pantoprazole 40 MG Vial IVPUSH SCH (16:00)
[2021-12-19] MEDS ORDERED: MVI, Adult with Vitamin K 10 ML, Thiamine 200 MG, Zinc/Copper/Manganese/Selenium 1 ML i... IV SCH ×4 (16:00)
[2021-12-19] MEDS: Acetaminophen 500 MG Tab PO SCH ×2 (17:20→23:03)
[2021-12-19] MEDS: ceFAZolin 2 GM in Premix Bag 1 BAG IV SCH (17:38)
[2021-12-19] MEDS: Dextrose 5%-Lactated Ringers 1,000 ML IV SCH (23:05)
[2021-12-20] MEDS: ceFAZolin 2 GM in Premix Bag 1 BAG IV SCH ×2 (02:47→10:06)
[2021-12-20] MEDS: Dextrose 5%-Lactated Ringers 1,000 ML IV SCH (04:46)
[2021-12-20] MEDS ORDERED: traMADol 50 MG Tab PO PRN (06:50)
[2021-12-20] MEDS ORDERED: Lactated Ringers 1,000 ML IV SCH (07:00)
[2021-12-20] MEDS: Levothyroxine 100 MCG Tab PO SCH (08:29)
[2021-12-20] MEDS: Acetaminophen 500 MG Tab PO SCH ×3 (08:29→23:14)
[2021-12-20] MEDS: Celecoxib 200 MG Cap PO SCH ×2 (08:30→22:05)
[2021-12-20] MEDS: Aspirin 81 MG Tab.EC PO SCH (08:31)
[2021-12-20] MEDS: Docusate Sodium 100 MG Cap PO SCH ×2 (08:31→22:05)
[2021-12-20] MEDS: Bisacodyl 5 MG Tab PO SCH ×2 (08:31→22:05)
[2021-12-20] MEDS: FLUoxetine 20 MG Cap PO SCH (08:32)
[2021-12-20] MEDS: Pantoprazole 40 MG Tab.CR PO SCH (11:52)
[2021-12-20] MEDS ORDERED: MVI, Adult with Vitamin K 10 ML, Thiamine 200 MG, Zinc/Copper/Manganese/Selenium 1 ML i... IV SCH ×4 (16:00)
[2021-12-21] MEDS: Pantoprazole 40 MG Tab.CR PO SCH (07:36)
[2021-12-21] MEDS: Levothyroxine 100 MCG Tab PO SCH (07:37)
[2021-12-21] MEDS: Acetaminophen 500 MG Tab PO SCH (07:38)
[2021-12-21] MEDS ORDERED: Cyanocobalamin (Vitamin B12) 1,000 MCG/ML SDV IM ONE (09:00)
[2021-12-21] MEDS: Bisacodyl 5 MG Tab PO SCH (09:09)
[2021-12-21] MEDS: Aspirin 81 MG Tab.EC PO SCH (09:09)
[2021-12-21] MEDS: Celecoxib 200 MG Cap PO SCH (09:09)
[2021-12-21] MEDS: Docusate Sodium 100 MG Cap PO SCH (09:09)
[2021-12-21] MEDS: FLUoxetine 20 MG Cap PO SCH (09:10)
== END 2021-12-21 13:26 | disposition home or self-care (01) | DRG 354 ==
LOC: EDSTATUS 07:15 → JP.SDSSCHI 09:38 → JP.SDS 09:38 → JP.MS 15:15
PROVIDERS: ADMIT Surgery; ATTEND Surgery
PROC: 0JB80ZZ Excision of Abdomen Subcutaneous Tissue and Fascia, Open Approach (ICD-10-PCS; principal; 2021-12-19)
PROC: 0WUF0JZ Supplement Abdominal Wall with Synthetic Substitute, Open Approach (ICD-10-PCS; 2021-12-19)
PROC: 3E0M05Z Introduction of Adhesion Barrier into Peritoneal Cavity, Open Approach (ICD-10-PCS; 2021-12-19)
DX: K43.0 Incisional hernia with obstruction, without gangrene (principal); N20.1 Calculus of ureter; M79.3 Panniculitis, unspecified; E03.9 Hypothyroidism, unspecified; K66.0 Peritoneal adhesions (postprocedural) (postinfection); G25.0 Essential tremor; I72.2 Aneurysm of renal artery; E65 Localized adiposity; K21.9 Gastro-esophageal reflux disease without esophagitis; E78.5 Hyperlipidemia, unspecified; E66.9 Obesity, unspecified; K42.9 Umbilical hernia without obstruction or gangrene; I10 Essential (primary) hypertension; E11.9 Type 2 diabetes mellitus without complications; Z96.653 Presence of artificial knee joint, bilateral; Z98.84 Bariatric surgery status; Z98.41 Cataract extraction status, right eye; Z98.42 Cataract extraction status, left eye; Z68.27 Body mass index [BMI] 27.0-27.9, adult
CPT/HCPCS: 36415; 80048; 80053; 83735; 84100; 85025; A9270-GY; C1713; C1781; C9113; J0171; J0330; J0690; J1100; J1170; J2020; J2185; J2405; J2704; J2710; J2795; J3010; J3411; J3420; J3490; J7120; J7121